=== PATIENT | female | born 1955 | race Caucasian/White ===

== ENCOUNTER 2020-11-09 10:50 | Emergency (ER) | payer MEDICARE ==
[~2020-11-09 10:50] MED LIST: AMITRIPTYLINE H75 MG PO; ESTRADIOL1 EACH TD; GLUCOPHAGE XR500 M1 PO; LEVOTHYROXINE25 MCG PO; NIACIN ER500 MG PO; NORCO 5-325 TA1 EACH PO; PROGESTERONE200 MG PO; SIMVASTATIN20 MG PO
[2020-11-09 12:16] LABS: HEMOGLOBIN 14.5 gm/dl (12.3-15.3); RED BLOOD COUNT 4.74 M/UL (4.00-5.10); WHITE BLOOD COUNT 12.1 K/UL (4.5-11.0)
[2020-11-09 12:35] LABS: BUN/CREATININE RATIO 17 (0-10)
[2020-11-09] MEDS ORDERED: ZITHROMAX250 MG PO (16:26)
[2020-11-09] MEDS ORDERED: PROVENTIL HFA6.7 GM INH (16:26)
[2020-11-09] MEDS ORDERED: OMNICEF 300 MG300 MG PO (16:26)
== END 2020-11-09 16:40 | disposition home or self-care (01) ==
LOC: ER1 10:50
PROVIDERS: Physician Assistant Medical
DX: R00.2 Palpitations (principal); R05.9 Cough, unspecified; Z20.822 Contact with and (suspected) exposure to COVID-19
CPT/HCPCS: 71045; 80053; 82550; 82553; 83605; 83874; 84439; 84443; 84484; 85025; 85379; 85610; 93005; 99285; Q9967; U0002

== ENCOUNTER → 2020-12-14 | Outpatient (CLI) | payer MEDICARE ==
[~2020-12-14] MED LIST changes: +OMNICEF 300 MG300 MG PO; +PROVENTIL HFA6.7 GM INH; +ZITHROMAX250 MG PO
== END ==
LOC: RAD 11:50
DX: J18.9 Pneumonia, unspecified organism (principal)
CPT/HCPCS: 71046